=== PATIENT | female | born 1975 ===

== ENCOUNTER 2017-08-25 21:41 | Emergency (ER) | payer SELFPAY ==
[~2017-08-25] VITALS: Ht 154.9 cm; Wt 44.5 kg
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
--- NOTE | 2017-08-25 22:50 | NUR ---
Patient discharged to home in stable conditon. Written and verbal after care instructions given. Patient verbalizes understanding of instructions.
== END 2017-08-25 22:52 | disposition home or self-care (01) ==
LOC: ER 21:43
DX: S00.83XA Contusion of other part of head, initial encounter (principal); Z88.2 Allergy status to sulfonamides; Y08.89XA Assault by other specified means, initial encounter; Y93.89 Activity, other specified; Y92.9 Unspecified place or not applicable; Y99.9 Unspecified external cause status
CPT/HCPCS: A4663